=== PATIENT | female | born 1995 | race Hispanic/Latino ===

== ENCOUNTER 2020-07-23 06:58 | Observation (INO) | payer MEDICAID, OTHER ==
[~2020-07-23] VITALS: Ht 167.6 cm; Wt 91.2 kg
[2020-07-23 07:55] LABS: APPEARANCE,URINE Cloudy (CLEAR); BILIRUBIN,URINE Negative (NEGATIVE); COLOR,URINE Yellow (YELLOW); GLUCOSE, URINE (UA) Negative (NEGATIVE); KETONES,URINE Negative (NEGATIVE); LEUKOCYTE ESTERASE ,URINE Moderate (NEGATIVE); NITRATE,URINE Negative (NEGATIVE); OCCULT BLOOD,URINE Negative (NEGATIVE); PH,URINE 6.5 (5.0-8.0); PROTEIN,URINE Negative (NEGATIVE)
[2020-07-23 08:00] LABS: BACTERIA,URINE Moderate /HPF (None Seen); RBC,URINE 0-1 /HPF (0-1); SQUAMOUS EPITHELIAL CELL,UR Few /HPF (0-2)
[2020-07-23 08:01] LABS: MUCUS,URINE Rare LPF (None Seen)
== END 2020-07-23 09:30 | disposition home or self-care (01) ==
LOC: EDH 06:58 → LDH 07:15
PROVIDERS: ADMIT Specialist; ATTEND Specialist
DX: O42.92 Full-term premature rupture of membranes, unspecified as to length of time between rupture and onset of labor (principal); Z3A.38 38 weeks gestation of pregnancy
CPT/HCPCS: 76815; 81001; 87088; 99284; G0378 ×2

== ENCOUNTER 2020-07-30 18:10 | Inpatient (IN) | payer MEDICAID ==
[~2020-07-30] VITALS: Ht 167.6 cm; Wt 91.6 kg
[2020-07-30] MEDS ORDERED: ROPIVACAINE 0.2% 100ML VIAL 100 ML EP PRN (18:30)
[2020-07-30] MEDS ORDERED: PROMETHAZINE HCL 25 MG/ML 1ML AMPULE IM PRN (18:30)
[2020-07-30] MEDS ORDERED: MEPERIDINE-PF 50 MG/ML SYG IVP PRN (18:30)
[2020-07-30] MEDS ORDERED: OXYTOCIN-LR 20 UNITS/1000 ML 1,000 ML IV SCH ×2 (18:30→19:00)
[2020-07-30] MEDS ORDERED: EPHEDRINE SULFATE 50 MG/ML AMPULE IVP PRN (18:30)
[2020-07-30] MEDS ORDERED: LACTATED RINGERS 500 ML 500 ML IV PRN (18:30)
[2020-07-30] MEDS ORDERED: NALOXONE HCL 0.4 MG/1 ML ML IV PRN (18:30)
[2020-07-30] MEDS: LACTATED RINGERS 1000ML 1,000 ML IV PRN (18:58)
[2020-07-30 18:59] LABS: HEMATOCRIT 36.5 % (36-48); MEAN CORPUSCULAR HEMOGLOBIN 34.2 pg (27.0-33.0); MEAN CORPUSCULAR VOLUME 100.6 fL (79-99); RED BLOOD CELL COUNT(AUTO) 3.63 MIL/uL (4.00-5.50); RED CELL DISTRIBUTION WIDTH 13.6 % (11.0-15.5); WHITE BLOOD COUNT (AUTO) 7.8 K/uL (4.8-10.8)
[2020-07-30 19:00] LABS: BILIRUBIN,URINE Negative (NEGATIVE); COLOR,URINE Yellow (YELLOW); GLUCOSE, URINE (UA) Negative (NEGATIVE); KETONES,URINE Negative (NEGATIVE); LEUKOCYTE ESTERASE ,URINE Trace (NEGATIVE); NITRATE,URINE Negative (NEGATIVE); OCCULT BLOOD,URINE Negative (NEGATIVE); PROTEIN,URINE Negative (NEGATIVE)
[2020-07-30] MEDS ORDERED: DINOPROSTONE 10 MG VAGINAL SUPP VG SCH (19:00)
[2020-07-30 19:07] LABS: APPEARANCE,URINE CLEAR (CLEAR)
[2020-07-30 19:09] LABS: BACTERIA,URINE Few /HPF (None Seen); MUCUS,URINE Rare LPF (None Seen); RBC,URINE 0-1 /HPF (0-1); SQUAMOUS EPITHELIAL CELL,UR Few /HPF (0-2); WBC,URINE 0-1 /HPF (0-1)
[2020-07-31] MEDS: LACTATED RINGERS 1000ML 1,000 ML IV PRN ×3 (00:48→15:32)
[2020-07-31 02:38] VITALS: BP 117/67
[2020-07-31] MEDS ORDERED: CEFAZOLIN SODIUM 1 GM VIAL ONE (19:50)
[2020-07-31] MEDS ORDERED: DURAMORPH PF1 MG/ML 10ML AMP IV ONE (19:55)
[2020-07-31] MEDS ORDERED: OXYTOCIN 10 USP UNITS/ML ONE (19:55)
[2020-07-31] MEDS ORDERED: CEFAZOLIN SODIUM 1 GM VIAL IVP PRN (20:00)
[2020-07-31] MEDS ORDERED: TRANEXAMIC ACID 1000MG/10ML ONE (20:05)
[2020-07-31] MEDS ORDERED: CEFAZOLIN SODIUM 1 GM VIAL IVP ONE (20:15)
[2020-07-31] MEDS: OXYTOCIN-LR 20 UNITS/1000 ML 1,000 ML IV PRN ×2 (20:37→21:00)
[2020-07-31] MEDS ORDERED: PHENYLEPHRINE HCL 10 MG/ML 1ML VIAL IV ONE (20:50)
[2020-07-31] MEDS ORDERED: SODIUM CHLORIDE 0.9% 10 ML VIAL ONE (20:50)
[2020-07-31] MEDS ORDERED: SODIUM CHLORIDE 0.9% 10 ML VIAL IVP PRN (21:15)
[2020-07-31] MEDS ORDERED: DEXTROSE 5 %-0.45 % NACL 1,000 ML IV PRN (21:15)
[2020-07-31] MEDS ORDERED: MEPERIDINE-PF 75 MG/ML SYG IM PRN (21:15)
[2020-07-31] MEDS ORDERED: PROMETHAZINE HCL 25 MG/ML 1ML AMPULE IM PRN (21:15)
[2020-07-31] MEDS ORDERED: ONDANSETRON HCL 4 MG/2 ML VIAL ONE (22:13)
--- NOTE | 2020-07-31 23:25 | NUR ---
Report received from Terry Cervantes RN; Patient came in via bed accompanied by Terry Cervantes RNC , Terry Hubbard, massage coordinator. and . She has an IV of LR with 20 units Pitocin infusing at 150 ml/hour, García Catheter patent flowing cleay yellow urine. Fundus firm at the level of umbilicus with small lochia rubra. Patient & oriented to room, call light given. Plan of care discussed with patient verbalizes understanding.
[2020-07-31 23:30] VITALS: BP 125/74
[2020-08-01] MEDS ORDERED: ONDANSETRON HCL 4 MG/2 ML VIAL ONE (00:12)
[2020-08-01] MEDS ORDERED: ONDANSETRON HCL 4 MG/2 ML VIAL IVP PRN (00:30)
[2020-08-01] MEDS ORDERED: MORPHINE SULFATE 2 MG/ML 1ML SYG IM PRN (00:45)
[2020-08-01] MEDS ORDERED: DiphenhydrAMINE HCL 50 MG/ML VIAL IV PRN (00:45)
--- NOTE | 2020-08-01 01:05 | NUR ---
Bev; Bev care done with small lochia rubra, abdominal Binder applied.
[2020-08-01] MEDS ORDERED: PREN-202 PO (01:29)
[2020-08-01] MEDS ORDERED: CALC750T4 PO (01:29)
--- NOTE | 2020-08-01 04:00 | NUR ---
Patient; Patient vomited small amount of clear liquid. She claimed, " I felt dizzy, no pain." Sadie pad checked with small Lochia Rubra, sadie pad changed. Patient advice not to get up if she still dizzy. She verbalizes understanding.
[2020-08-01 04:03] VITALS: BP 129/70
--- NOTE | 2020-08-01 05:50 | NUR ---
Patiet ; Patient requested to assist her to the bathroom wants to get up and walk. Gracía Catheter out patient tolerated well. Assisted to get up but she claimed, "I felt dizzy." She was assisted back in bed. She vomited once small clear fluid.
[2020-08-01 06:53] LABS: HEMATOCRIT 30.7 % (36-48); MEAN CORPUSCULAR HEMOGLOBIN 33.4 pg (27.0-33.0); MEAN CORPUSCULAR HGB CONC 33.6 g/dL (32.0-36.0); MEAN CORPUSCULAR VOLUME 99.7 fL (79-99); RED BLOOD CELL COUNT(AUTO) 3.08 MIL/uL (4.00-5.50); RED CELL DISTRIBUTION WIDTH 13.1 % (11.0-15.5); WHITE BLOOD COUNT (AUTO) 10.9 K/uL (4.8-10.8)
[2020-08-01 07:28] VITALS: BP 102/52
[2020-08-01 08:15] LABS: HEPATITIS Bs ANTIGEN SCREEN P Negative (Negative)
--- NOTE | 2020-08-01 08:30 | NUR ---
BEDSIDE PT SITTING UP BY SIDE OF BED, DENIES DIZZINESS OR DISCOMFORT AT THIS TIME. CLEAR LIQUID DIET GIVEN TO PT.
--- NOTE | 2020-08-01 09:50 | NUR ---
AMBULATING PT AMBULATING WITH SPOUSE IN HALLWAYS, STEADY GAIT OBSERVED. PT SMILING, STATES SHE FEELS "GREAT." PT ADVISED TO NOTIFY STAFF FOR ANY ASSISTANCE/CONCERNS.
--- NOTE | 2020-08-01 10:45 | NUR ---
ROUNDS DR JACKSON AT BEDSIDE TO EVALUATE PT. ORDERS FOR DISCHARGE RECEIVED. PT HAPPY TO BE GOING HOME THIS EVENING.
[2020-08-01] MEDS ORDERED: ACETAMINOPHEN-CODEINE 300/30MG TAB PO PRN (11:00)
[2020-08-01] MEDS ORDERED: ACETAMINOPHEN EXTRA STRENGTH 500 MG TABLET PO PRN (11:00)
[2020-08-01] MEDS ORDERED: BISACODYL 10 MG SUPP.RECT RC PRN (11:00)
[2020-08-01] MEDS ORDERED: IBUPROFEN 600 MG TABLET PO PRN (11:00)
[2020-08-01] MEDS ORDERED: SIMETHICONE 80 MG TAB.CHEW PO PRN (11:00)
[2020-08-01] MEDS ORDERED: HYDROCODONE/ACETAMINOPHEN 5/325 MG TAB PO PRN (11:00)
[2020-08-01 11:30] VITALS: BP 111/67
--- NOTE | 2020-08-01 11:50 | NUR ---
IV IV REMOVED, CATHETER INTACT, TOLERATED WELL. BANDAID APPLIED TO SITE.
--- NOTE | 2020-08-01 13:57 | NUR ---
INCISION DRESSING TO ABD REMOVED, INCISION OPEN TO AIR, WELL APPROXIMATED. NON-ADHERING DRESSING PLACED PER PT REQUEST.
[2020-08-01 16:40] VITALS: BP 103/64
[2020-08-01 19:40] VITALS: BP 117/53
[2020-08-01] MEDS ORDERED: DOCUSATE SODIUM 100 MG CAP PO SCH (21:00)
[2020-08-01] MEDS ORDERED: IBUPROFEN 800 MG TAB PO SCH (21:15)
--- NOTE | 2020-08-01 21:30 | NUR ---
PT. DISCHARGED HOME. TAKEN TO CAR WITH BABY VIA WC BY JOVAN HERNANDEZ. PT'S ACCOMPANIED THEM. PT. DENIED PAIN AND DISCOMFORT.
== END 2020-08-01 21:30 | disposition home or self-care (01) | DRG 540 ==
LOC: LDH 18:10 → WSH 07-31 23:26
PROVIDERS: ADMIT Specialist; ATTEND Specialist
PROC: 3E033VJ Introduction of Other Hormone into Peripheral Vein, Percutaneous Approach (ICD-10-PCS; 2020-07-30)
PROC: 10907ZC Drainage of Amniotic Fluid, Therapeutic from Products of Conception, Via Natural or Artificial Opening (ICD-10-PCS; 2020-07-30)
PROC: 3E0P7VZ Introduction of Hormone into Female Reproductive, Via Natural or Artificial Opening (ICD-10-PCS; 2020-07-30)
PROC: 10D00Z1 Extraction of Products of Conception, Low, Open Approach (ICD-10-PCS; principal; 2020-07-31 20:12)
DX: O36.63X0 Maternal care for excessive fetal growth, third trimester, not applicable or unspecified (principal); O61.9 Failed induction of labor, unspecified; Z3A.40 40 weeks gestation of pregnancy; Z37.0 Single live birth
CPT/HCPCS: 36415; 59510; 76805; 76819; 81001; 85027; 86592; 86850; 86900; 86901; 87340; A4344; G0378; J0690; J2175; J2274; J2370; J2405; J2550; J2590; J3490; J7120